=== PATIENT | female | born 1955 | race Caucasian/White ===

== ENCOUNTER 2018-11-01 10:03 | Emergency (ER) | payer OTHER ==
[2018-11-01 10:24] VITALS: BP 148/80
[2018-11-01] MEDS ORDERED: Aspirin 81 mg CHEW TAB* 81 MG TAB.CHEW PO ONE (10:41)
--- NOTE | 2018-11-01 10:42 | UC ---
Cardiac HPI - HPI Summary HPI Summary: 62-year-old woman comes in with a chief complaint of chest pain. Patient noticed it several hours ago. A 2 out of 10 minutes in the middle of her sternum. Denies any nausea vomiting sweating and shortness of breath. 4 days ago she woke up with pain in the same area that was as high as 6 out of 10 at that time it radiated into both shoulders and her neck. She describes the pain as sharp pain. Denies any abdominal pain or history of GERD. She does have a history of hypertension and high cholesterol. She does not have diabetes she is not a smoker. There is a family history of cardiac. She has not had a stress test in the past. She had the pain 4 days ago and then has had intermittent pain since that time. - History of Current Complaint Chief Complaint: UCChestPain Stated Complaint: CHEST PAIN Time Seen by Provider: 11/01/18 10:09 Pain Intensity: 0 - Allergy/Home Medications Allergies/Adverse Reactions: Allergies Allergy/AdvReac Type Severity Reaction Status Date / Time No Known Allergies Allergy Verified 11/01/18 10:20 Home Medications: Home Medications Atorvastatin* [Lipitor*] 20 mg PO DAILY 11/01/18 [History Confirmed 11/01/18] Multivitamins/Minerals TAB* [Theragran/minerals TAB*] 1 tab PO DAILY 11/01/18 [ History Confirmed 11/01/18] PMH/Surg Hx/FS Hx/Imm Hx Previously Healthy: Yes Endocrine History: Dyslipidemia Cardiovascular History: Hypertension - Surgical History Surgical History: None - Family History Known Family History: Positive: Cardiac Disease - Social History Alcohol Use: Daily Alcohol Amount: 2 glasses wine/day Substance Use Type: None Smoking Status (MU): Former Smoker When Did the Patient Quit Smoking/Using Tobacco: 25 yrs ago Review of Systems All Other Systems Reviewed And Are Negative: Yes Constitutional: Positive: Negative Skin: Positive: Negative Eyes: Positive: Negative ENT: Positive: Negative Respiratory: Positive: Negative Cardiovascular: Positive: Chest Pain Gastrointestinal: Positive: Negative Motor: Positive: Negative Neurovascular: Positive: Negative Musculoskeletal: Positive: Negative. Negative: Calf Tenderness, Edema Neurological: Positive: Negative Psychological: Positive: Negative Is Patient Immunocompromised?: No Physical Exam Triage Information Reviewed: Yes Appearance: Well-Appearing, No Pain Distress, Well-Nourished Vital Signs: Initial Vital Signs Temp 97.9 F 11/01/18 10:16 Pulse 75 11/01/18 10:16 Resp 16 11/01/18 10:16 BP 148/80 11/01/18 10:16 Pulse Ox 96 11/01/18 10:16 Vital Signs Reviewed: Yes Eye Exam: Normal Eyes: Positive: Conjunctiva Clear Neck: Positive: Supple Respiratory: Positive: Chest non-tender, Lungs clear, Normal breath sounds, No respiratory distress Cardiovascular: Positive: RRR Abdomen Description: Positive: Nontender, Soft Bowel Sounds: Positive: Present Musculoskeletal: Positive: Strength Intact, ROM Intact, No Edema - NO CALF TENDERNESS Neurological: Positive: Alert, Muscle Tone Normal Psychological: Positive: Age Appropriate Behavior Skin Exam: Normal Diagnostics - EKG Cardiac Rate: NL - AT 1008 Cardiac Rhythm: Sinus: Normal - 79BPM Ectopy: None Summary of EKG Findings: ST DEPRESSION LATERAL LEADS - Assessment/Plan Course Of Treatment: I discussed the EKG with the patient. I do not see any ST elevation at this time. Patient was given aspirin 324 mg by mouth in clinic. I recommended further evaluation emergency Department. Patient prefers to go by POV. - Clinical Impression Provider Diagnosis: Chest pain Discharge - Sign-Out/Discharge Documenting (check all that apply): Patient Departure All imaging exams completed and their final reports reviewed: No Studies - Discharge Plan Condition: Stable Disposition: HOME-RECOMMEND TO ED Referrals: Lillie LANDRUM,Farhana Desir [Primary Care Provider] - Additional Instructions: GO DIRECTLY TO THE EMERGENCY DEPARTMENT FOR FURTHER EVALUATION. - Billing Disposition and Condition Condition: STABLE Disposition: Home-Recommend to ED
== END 2018-11-01 10:49 | disposition home health service (06) ==
LOC: UCEAST 10:03
DX: R07.9 Chest pain, unspecified (principal); I10 Essential (primary) hypertension; E78.5 Hyperlipidemia, unspecified; Z87.891 Personal history of nicotine dependence
CPT/HCPCS: 93005; 99212; A9270-GY; G0463

== ENCOUNTER 2018-11-01 11:30 | Observation (INO) | payer OTHER ==
[2018-11-01 13:00] LABS: ABS Eosinophils 0.1 10^3/ul (0-0.6); ABS Lymphocytes 2.1 10^3/ul (1.0-4.8); ABS Monocytes 0.5 10^3/ul (0-0.8); ABS Neutrophils 4.2 10^3/ul (1.5-7.7); Eosinophil % 1.8 %; Hematocrit 39 % (35-47); Hemoglobin 13.4 g/dL (12.0-16.0); Lymphocyte % 29.8 %; Mean Corpuscular HGB Conc 34 g/dL (31-36); Mean Corpuscular Hemoglobin 32 pg (27-31); Mean Corpuscular Volume 95 fL (80-97); Mean Platelet Volume 9.3 fL (7.4-10.4); Nucleated Red Blood Cells % 0.1; Platelet Count 197 10^3/uL (150-450); Red Blood Count 4.13 10^6 /uL (3.70-4.87); Red Cell Distribution Width 13 % (10-15); White Blood Count 6.9 10^3/uL (3.5-10.8)
[2018-11-01 13:07] LABS: INR 0.97 (0.82-1.09)
[2018-11-01 13:11] LABS: Albumin 4.5 g/dL (3.2-5.2); Albumin/Globulin Ratio 1.7 (1-3); EGFR African American 122.6 (>60); EGFR Non-African American 101.3 (>60); Globulin 2.6 g/dL (2-4); Potassium 4.2 mmol/L (3.5-5.0); Total Bilirubin 0.5 mg/dL (0.2-1.0); Total Protein 7.1 g/dL (6.4-8.9)
--- NOTE | 2018-11-01 13:38 | ED ---
HPI Chest Pain - HPI Summary HPI Summary: This patient is a 62 year old F presenting to [facility] with a chief complaint of chest pain since morning of 10/28/18. Pt reports chest pain radiating to shoulder blades, and back, originally the pain was at 8/10. Pt consulted a nurse practitioner friend, who recommended she take Losartan and if pain persisted to go into ED. Symptoms alleviated by Losartan. Pt has a PMHx of HTN. The patient rates the pain 2/10 in severity currently. - History of Current Complaint Chief Complaint: EDChestPainROMI Time Seen by Provider: 11/01/18 13:24 Hx Obtained From: Patient Onset/Duration: Started Days Ago, Still Present Timing: Constant, Lasting Days Initial Severity: Severe Current Severity: Mild Pain Intensity: 2 Pain Scale Used: 0-10 Numeric Chest Pain Radiates: Yes Chest Pain Radiates To:: Back Aggravating Factor(s): Nothing Alleviating Factor(s): Medication Associated Signs and Symptoms: Positive: Chest Pain, Other: - pos - Back pain - Allergy/Home Medications Allergies/Adverse Reactions: Allergies Allergy/AdvReac Type Severity Reaction Status Date / Time No Known Allergies Allergy Verified 11/01/18 10:20 Home Medications: Home Medications Levothyroxine TAB* [Synthroid TAB*] 112 mcg PO DAILY 11/01/18 [History Confirmed 11/01/18] Losartan TAB* [Cozaar TAB*] 25 mg PO DAILY 11/01/18 [History Confirmed 11/01/18] PMH/Surg Hx/FS Hx/Imm Hx Endocrine/Hematology History: Reports: Hx Thyroid Disease Cardiovascular History: Reports: Hx Hypertension - Cancer History Hx Chemotherapy: No Hx Radiation Therapy: No Infectious Disease History: No Infectious Disease History: Denies: Traveled Outside the [place] in Last 30 Days - Family History Known Family History: Positive: Cardiac Disease - Social History Occupation: Retired Alcohol Use: Daily Alcohol Amount: 2 glasses wine/day Substance Use Type: Reports: None Hx Tobacco Use: Yes Smoking Status (MU): Former Smoker Review of Systems Negative: Fever Positive: Chest Pain Positive: Other - pos - back pain All Other Systems Reviewed And Are Negative: Yes Physical Exam - Summary Physical Exam Summary: GENERAL: Patient is a well-developed and nourished F who is lying comfortable in the stretcher. Patient is not in any acute respiratory distress. HEAD AND FACE: Normocephalic EYES: PERRLA, EOMI x 2. EARS: Hearing grossly intact. MOUTH: Oropharynx within normal limits. NECK: Supple, trachea is midline, no adenopathy, no JVD, no carotid bruit. CHEST: Symmetric, no tenderness at palpation LUNGS: Clear to auscultation bilaterally. No wheezing or crackles. CVS: Regular rate and rhythm, S1 and S2 present, no murmurs or gallops appreciated. ABDOMEN: Soft, non-tender. Bowel sounds are normal. No abnormal abdominal pulsations. EXTREMITIES: Full ROM in all major joints, no edema, no cyanosis or clubbing. NEURO: Alert and oriented x 3. No acute neurological deficits. Speech is normal and follows commands. SKIN: Dry and warm Triage Information Reviewed: Yes Vital Signs On Initial Exam: Initial Vitals Temp Pulse Resp BP Pulse Ox 97.3 F 73 18 139/85 99 11/01/18 11:37 11/01/18 11:37 11/01/18 11:37 11/01/18 11:37 11/01/18 11:37 Vital Signs Reviewed: Yes Diagnostics - Vital Signs Vital Signs Temp Pulse Resp BP Pulse Ox 11/01/18 11:37 97.3 F 73 18 139/85 99 - Laboratory Lab Results: Lab Results 11/01/18 11/01/18 11/01/18 Range/Units 12:22 12:22 12:22 WBC 6.9 (3.5-10.8) 10^3/uL RBC 4.13 (3.70-4.87) 10^6 /uL Hgb 13.4 (12.0-16.0) g/dL Hct 39 (35-47) % MCV 95 (80-97) fL MCH 32 H (27-31) pg MCHC 34 (31-36) g/dL RDW 13 (10-15) % Plt Count 197 (150-450) 10^3/uL MPV 9.3 (7.4-10.4) fL Neut % (Auto) 60.7 % Lymph % (Auto) 29.8 % [place] % (Auto) 7.3 % Eos % (Auto) 1.8 % Baso % (Auto) 0.4 % Absolute Neuts (auto) 4.2 (1.5-7.7) 10^3/ul Absolute Lymphs (auto) 2.1 (1.0-4.8) 10^3/ul Absolute Monos (auto) 0.5 (0-0.8) 10^3/ul Absolute Eos (auto) 0.1 (0-0.6) 10^3/ul Absolute Basos (auto) 0.0 (0-0.2) 10^3/ul Absolute Nucleated RBC 0.0 10^3/ul Nucleated RBC % 0.1 INR (Anticoag Therapy) 0.97 (0.82-1.09) Sodium 138 (135-145) mmol/L Potassium 4.2 (3.5-5.0) mmol/L Chloride 105 (101-111) mmol/L Carbon Dioxide 24 (22-32) mmol/L Anion Gap 9 (2-11) mmol/L BUN 15 (6-24) mg/dL Creatinine 0.60 (0.51-0.95) mg/dL Est GFR ( Amer) 122.6 (>60) Est GFR (Non-Af Amer) 101.3 (>60) BUN/Creatinine Ratio 25.0 H (8-20) Glucose 107 H (70-100) mg/dL Calcium 10.0 (8.6-10.3) mg/dL Total Bilirubin 0.50 (0.2-1.0) mg/dL AST 34 (13-39) U/L ALT 39 (7-52) U/L Alkaline Phosphatase 68 (34-104) U/L Troponin I 0.00 (<0.04) ng/mL Total Protein 7.1 (6.4-8.9) g/dL Albumin 4.5 (3.2-5.2) g/dL Globulin 2.6 (2-4) g/dL Albumin/Globulin Ratio 1.7 (1-3) Result Diagrams: 11/01/18 12:22 11/01/18 12:22 Lab Statement: Any lab studies that have been ordered have been reviewed, and results considered in the medical decision making process. - Radiology CXR Radiology Interpretation Completed By: Radiologist Summary of Radiographic Findings: CXR reveals, per radiologist, IMPRESSION: No active cardiopulmonary disease is noted. ED physician has reviewed this radiology report. - EKG 1133 Cardiac Rate: NL - 73 bpm EKG Rhythm: Sinus Rhythm Summary of EKG Findings: An EKG reveals NSR 73 bpm, multiple PVCs, inverted t- waves in inferior leads, similar compared to previous on at 10:08 Re-Evaluation - Re-Evaluation First Eval Re-Evaluation Time: 14:50 Comment: Discussed results and plan of care with pt. Chest Pain Course/Dx - Course Course Of Treatment: This patient is a 62 year old F presenting to [facility] with a chief complaint of chest pain since morning of 10/28/18. Physical Exam Findings are nml. Blood work obtained. Glucose is 107, BUN/Creatinine Ratio is 25. Troponin is 0.0. An EKG reveals NSR 73 bpm, multiple PVCs, inverted t-waves in inferior leads, similar compared to previous on at 10:0811. CXR reveals , per radiologist, IMPRESSION: No active cardiopulmonary disease is noted. Case discussed with hospitalist. I discussed results with patient. The patient agrees with this plan. Pt will be admitted for stress test. - Diagnoses Provider Diagnoses: Chest pain - Provider Notifications Discussed Care Of Patient With: Valery Diego Time Discussed With Above Provider: 13:42 Instructed by Provider To: Other - Discussed patient's case with Dr. Diego, who accepts pt for admission. Discharge - Sign-Out/Discharge Documenting (check all that apply): Patient Departure - Admit Patient Received Moderate/Deep Sedation with Procedure: No - Discharge Plan Condition: Stable Disposition: ADMITTED TO [facility] - Billing Disposition and Condition Condition: STABLE Disposition: Admitted to [facility] - Attestation Statements Document Initiated by Scribe: Yes Documenting Scribe: Samantha Joyce Provider For Whom Marivel is Documenting (Include Credential): Dr. Kristan Mcdowell MD Scribe Attestation: Samantha Navarro scribed for Dr. Kristan Mcdowell MD on 11/02/18 at 0758. Scribe Documentation Reviewed: Yes Provider Attestation: The documentation as recorded by the Samantha ashford accurately reflects the service I personally performed and the decisions made by me, Dr. Kristan Mcdowell MD Status of Scribe Document: Viewed
[2018-11-01] MEDS ORDERED: Aspirin 81 mg CHEW TAB* 81 MG TAB.CHEW PO ONE (14:58)
[2018-11-01] MEDS ORDERED: Nitroglycerin TAB 0.4 MG* 0.4 MG TAB SL PRN (14:59)
[2018-11-01] MEDS ORDERED: Iohexol 350* (CONTRAST) 500 ML MDV IV ONE (15:10)
[2018-11-01] MEDS: Heparin VIAL(*) 5000 UNITS/ML VIAL (FIVE THOUSAND) SUBCUT SCH (21:15)
--- NOTE | 2018-11-01 22:02 | HP ---
CC: Farhana Moreira M.D. * HISTORY AND PHYSICAL: DATE OF ADMISSION: 11/01/18 TIME OF EVALUATION: 2:50 p.m. PRIMARY CARE PROVIDER: Farhana Moreira M.D. CHIEF COMPLAINT: Chest pain. HISTORY OF PRESENT ILLNESS: Mrs. Johnson is a 62-year-old lady with a past medical history of hypertension, hypothyroidism, hyperlipidemia, who presents to the emergency room with complaints of chest pain. She states on 10/28/18, she woke up with retrosternal chest pain, 9/10 intensity that she cannot characterize. She states that she tried to relax and took some deep breathing and the pain subsided. As the day went on, she started to have pain between her shoulder blades and later on, she had some pain referring to the left side of her neck. There were no provoking or alleviating factors to the pain. She describes good exercise capacity and states that the pain was not related to exertion. She denies any excessive physical exertion lately. She denies dyspnea on exertion, orthopnea or PND. She states that the pain resolved by itself and during the weekend, she was feeling well and had no further episodes of chest pain. Today, the chest pain occurred again, retrosternal, 8/10, and she decided to come to the emergency room. A nurse practitioner friend recommended she take her losartan and come to the ED. She did that and by the time she came to the emergency room, her pain was down to 2/ 10. At the time of my evaluation, her pain had resolved. She denies dyspnea, palpitations, nausea, vomiting, diarrhea or urinary complaints. PAST MEDICAL HISTORY: 1. Hypertension. 2. Hyperlipidemia. 3. Hypothyroidism. FAMILY HISTORY: There is a family history of cardiac disease. 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 She drinks 2 glasses of wine every day. She was a smoker, but quit more than 20 years ago. She denies drug use. Surrogate decision maker is her , Akhil Johnson. His phone number is [phone]. REVIEW OF SYSTEMS: A 14-point review of systems was performed and all the pertinent negatives as per the HPI. PHYSICAL EXAMINATION GENERAL: The patient is a pleasant elderly lady sitting up in the ED stretcher , in no acute distress. VITAL SIGNS: Temperature 98.0, heart rate 67, respiratory rate is 19, oxygen saturation is 97% on room air, blood pressure is 146/73. HEENT: Pupils are equal. Moist mucous membranes. CHEST: Breath sounds bilaterally with no added sounds. CVS: Normal S1, S2. Regular rate and rhythm. ABDOMEN: Soft, nontender, nondistended. Bowel sounds are present. Unable to palpate her aorta pulse. EXTREMITIES: No edema. NEUROLOGIC: She is alert and oriented x3, able to move all 4 extremities. DIAGNOSTIC STUDIES/LAB DATA: The patient had a CBC that showed WBC of 6.9, hemoglobin of 13.4, hematocrit of 49, platelets of 197 with 60% neutrophils. INR is 0.97. Chemistry showed a sodium 138, potassium 4.2, chloride of 105, bicarb of 24, BUN of 15, creatinine of 0.6, glucose of 107. Calcium of 10. LFTs were normal. Troponin was 0. Chest x-ray showed no active cardiopulmonary disease. An EKG done 11/01/18 at 10:08 a.m. showed sinus rhythm at 79 beats per minute with T-wave inversions in III and aVF, and ST depressions in II. A repeat EKG was done at 11:33 a.m. and it showed sinus rhythm at 73 beats per minute with PVCs and similar changes as before. A CTA of the chest, abdomen, and pelvis was performed and it revealed no evidence of aortic dissection, no evidence of aneurysm of the thoracic or abdominal aorta, normal common and external iliac arteries, prominent thyroid. ASSESSMENT AND PLAN: Mrs. Johnson is a 62-year-old lady with a past medical history of hypertension, hyperlipidemia, hypothyroidism, prior tobacco abuse, family history of coronary artery disease, who presented to the emergency room with complaints of episodes of retrosternal neck and between the shoulder blades pain, intermittent since last week, reoccurring today. 1. Chest pain, rule out acute coronary syndrome. The patient will be admitted to the medicine floor. We are going to rule out acute coronary syndrome with serial troponins. She had a CTA of the chest, abdomen, and pelvis that was negative for aneurysm or dissection. The plan is for an exercise echo stress in the morning. The patient received an aspirin in the emergency room and we are going to continue that. She will also have sublingual nitroglycerin available as needed. 2. Hypertension. It is controlled. We will continue her losartan. 3. Hypothyroidism. We will continue levothyroxine. 4. Hyperlipidemia. We will check as a fating lipid profile and we will continue her atorvastatin. 5. DVT prophylaxis. The patient has a score of 2 on DVT Prophylaxis Assessment Guide and should be started on subcutaneous heparin. 6. Code status is full. TIME SPENT: Approximately 45 minutes was spent with the patient interview, medical record's review, physical examination to complete this admission, more than half of this time was spent [id number] with the patient in coordination of care.. [id number]/[facility] #: [id number] KAREN
[2018-11-02] MEDS: Heparin VIAL(*) 5000 UNITS/ML VIAL (FIVE THOUSAND) SUBCUT SCH (05:49)
[2018-11-02] MEDS ORDERED: Levothyroxine TAB* 112 MCG TAB PO SCH (06:00)
[2018-11-02 07:31] VITALS: BP 143/82
[2018-11-02 07:31] LABS: HDL Cholesterol 46.4 mg/dL
[2018-11-02] MEDS ORDERED: Aspirin EC TAB* 81 MG TAB.EC PO SCH (09:00)
[2018-11-02] MEDS ORDERED: Multivitamins/Minerals TAB PO SCH (09:00)
[2018-11-02] MEDS ORDERED: Atorvastatin* 20 MG TAB PO SCH (09:00)
[2018-11-02] MEDS ORDERED: Losartan TAB* 25 MG PO SCH (09:00)
[2018-11-02] MEDS ORDERED: Perflutren Lipid Microsphere* 3 ML VIAL ONE (09:20)
--- NOTE | 2018-11-04 21:04 | DS ---
CC: Dr. Daniella Piedra; Dr. Farhana Moreira DISCHARGE SUMMARY: DATE OF ADMISSION: 11/01/18 DATE OF DISCHARGE: 11/02/18 PRIMARY CARE PROVIDER: Dr. Farhana Moreira. MY ATTENDING: Dr. Daniella Piedra. HOSPITAL COURSE: Please refer to the admitting H and P on 11/01/18, but in short, Ms. Johnson is a 62 -year-old female patient with past medical history of hypertension, hypothyroidism, and hyperlipidemi a. She presented to the emergency department with complaints of chest pain that was radiating to bet ween the shoulder blades, also described it as retrosternal and radiating up to the jaw. The patient states it was intermittent. She tried relaxation techniques and deep breathing to alleviate the rome n with not much relief. She called a friend and was describing the pain. Her friend is either a vero se or nurse practitioner. She had suggested that she take her hypertensive medications and if she millan d no change in the pain that she should come to the emergency department and seek additional medical attention. In the emergency department, she had labs drawn and EKG and troponins tested. Her EKG di d have some potential changes in the sinus rhythm with some PVCs. She had some T-wave inversions in leads II, III, and aVF, but it was not an acute change from EKG that was on record from previous admi ssion. She also had a CTA of the chest, abdomen, and pelvis which revealed no aortic dissections and no aneurysms. Troponins were negative at 0.00, 0.00, and 0.01. The patient was scheduled for an ex ercise stress echo the following morning. The patient underwent her stress echo on the morning of . The conclusion of that test showed no inducible ischemia by echo criteria, nonspecific resti ng and postexercise ECG findings, hypertensive throughout, and PVCs at rest. Recommendation, future stress test to be done with nuclear imaging. In the observation portion of the stress report, it did show that resting ECG showed normal sinus rhythm with flattened T waves, PVCs with exercise resoluti on of PVCs, upsloping ST depression in later recovery, horizontal ST depression mild with biphasic Ts which were nonspecific. Resting echo of fair quality and shows normal wall motion. Postexercise praful ges were suboptimal. All escalante improve in contractility symmetrically. After discussing the finding s with the patient, we explained to her that the recommendation was to have additional imaging perfor med. I discussed with her that having a stress test with nuclear imaging would be the recommendation . We felt it would be safe to discharge the patient to home and have this scheduled as an outpatient and that the patient would be discharged on baby aspirin daily. A referral was made to [facility] to have that imaging scheduled. I explained to the patient in detail what the plan would be and she was agre eable that she would follow up to have that imaging scheduled and that she would start baby aspirin d aily until the test was complete and she had followup either with her primary care provider and/or ca rdiologist depending on the results of that test. REVIEW OF SYSTEMS: On the day of discharge, the patient denied any fever, fatigue, or chills. No he adache. No blurred vision. No shortness of breath. No chest pain. No abdominal pain. No nausea. No vomiting. No urinary complaints. No pain. No arthralgias or myalgias and no further constituti onal complaints. PHYSICAL EXAMINATION: Reveals a well-appearing woman in no acute distress. Her vital signs are bloo d pressure 143/82, heart rate 64, respiratory rate 16, O2 saturation 98% on room air with a temperatu re of 98.0. HEENT: The patient is atraumatic, normocephalic. PERRLA. Nonicteric sclerae. Oral mu cosa is moist. Tongue is midline. Neck is supple, nontender. No JVD noted. No carotid bruits auscu ltated. Cardiovascular: S1, S2 present. No murmurs, gallops, or rubs noted. Rate and rhythm are re gular. Lungs are clear bilaterally to auscultation with no wheezing, rhonchi, or rales. Abdomen is soft, nontender, and nondistended. Positive bowel sounds in all 4 quadrants. is deferred. Muscul oskeletal: There is no clubbing, no cyanosis, and no edema. She has +2 distal pulses palpable. Full range of motion. Steady gait. Neurologic: Grossly intact with no focal deficits. Psychiatric: C ooperative and appropriate. DIAGNOSTIC STUDIES/LAB DATA: Laboratories: WBC 6.9, RBCs 4.13, hemoglobin 13.4, hematocrit 39, plate lets 197. Sodium 138, potassium 4.2, chloride 105, CO2 of 24, BUN 15, creatinine 0.60, GFR 101.3, glu cose 107, calcium 10.0. Bilirubin 0.50, AST 34, ALT 39, alk phos 68. Troponins negative at 0.00, 0.0 0, 0.01. Total protein 7.1, albumin 4.5, globulin 2.6. Triglycerides 286, total cholesterol 180, LD L cholesterol 76, HDL 46.4. Imaging: Stress test as noted above in the body of this report. EKG as noted above in the body of t his report. Chest x-ray dated 11/01/18 shows no acute cardiopulmonary process. Chest, abdomen, and pelvis CT angiogram dated 11/01/18 showed no evidence of aortic dissection. DISCHARGE DIAGNOSES: 1. Chest pain, rule out acute coronary syndrome. 2. History of hypertension. 3. History of hyperlipidemia. MEDICATIONS FOR DISCHARGE: 1. Losartan 25 mg p.o. daily. 2. Multivitamin with mineral 1 tablet daily. 3. Levothyroxine 112 mcg p.o. daily. 4. Atorvastatin 20 mg p.o. daily. 5. New Medication: Aspirin 81 mg p.o. daily. DISPOSITION: The patient was discharged to home in stable condition. DIET: Heart healthy as tolerated. ACTIVITY: Progress as tolerated. FOLLOWUPS: The patient was instructed to follow up with [facility] for nuclear stress test and Dr. Moreira , her primary care provider. Appointment has been made on 11/14/18 at 11:15 a.m. TIME SPENT: Thirty-five minutes on discharge planning. MAI BYRNES, JAC [id number]/[facility] #: [id number]
== END 2018-11-02 11:35 | disposition home or self-care (01) ==
LOC: ED 11:30 → MEDTELE 14:53
PROVIDERS: ADMIT Internal Medicine; ATTEND Internal Medicine
DX: R07.9 Chest pain, unspecified (principal); I10 Essential (primary) hypertension; E78.5 Hyperlipidemia, unspecified; E03.9 Hypothyroidism, unspecified; Z87.891 Personal history of nicotine dependence; M54.9 Dorsalgia, unspecified; Z79.899 Other long term (current) drug therapy; R94.31 Abnormal electrocardiogram [ECG] [EKG]
CPT/HCPCS: 36415; 71046; 71275; 74174; 80053; 80061; 84484; 85025; 85610; 93005; 93017; 96372; 99284; A9270-GY; G0378; J1644; Q9967